=== PATIENT | female | born 1955 | race Caucasian/White ===

== ENCOUNTER 2019-04-04 12:56 | Inpatient (IN) ==
[2019-04-04] MEDS ORDERED: DECADRON IV SCH (14:15)
[2019-04-04] MEDS ORDERED: SODIUM CHLORIDE 0.9% INJ SCH (14:15)
[2019-04-04 15:02] LABS: BASO# 0.02 X1000 (0.0-0.2); BASO% 0.2 % (0.0-0.8); EOS# 0.91 X1000 (0.0-0.7); EOS% 10.3 % (0.0-10.0); HEMATOCRIT 40.6 % (37.0-47.0); IMM GRAN# 0.06 X1000 (0.0-0.04); IMM GRAN% 0.7 % (0.0-0.5); LYMPH# 1.52 X1000 (1.2-3.4); LYMPH% 17.3 % (20.5-51.1); MCH 29.9 PG (27-31); MCV 93.3 FL (81-99); MONO# 0.67 X1000 (0.11-0.59); MONO% 7.6 % (1.7-9.3); MPV 9.7 FL (7.4-10.4); NEUT# 5.62 X1000 (1.4-6.5); NEUT% 63.9 % (42.2-75.2); PLT 321 X1000 (130-400); RBC 4.35 XMIL (4.2-5.4); RDW 13.3 % (11.5-14.5)
[2019-04-04 15:28] LABS: AGAP 11; ALB/GLOB RATIO 1.3; ALBUMIN 3.9 g/dL (3.5-5.0); ALKALINE PHOSPHATASE 124 U/L (32-104); BUN 8 mg/dL (8-22); CALCIUM 8.9 mg/dL (8.8-10.2); CHLORIDE 100 mmol/L (98-107); COSMO 269; CREATININE 0.7 mg/dL (0.5-0.9); ESTIMATED GFR > 60; GLUCOSE 102 mg/dL (70-104); GOT 21 U/L (10-30); GPT 19 U/L (10-36); POTASSIUM 4.2 mmol/L (3.5-5.1); SODIUM 135 mmol/L (136-145); TCO2 24 mmol/L (25-35); TOTAL BILIRUBIN 0.26 mg/dL (0.20-1.00); TOTAL PROTEIN 6.9 g/dL (6.3-8.3)
[2019-04-04] MEDS: PROTONIX IV SCH (15:45)
[2019-04-04] MEDS ORDERED: TYLENOL PO PRN (21:03)
[2019-04-04] MEDS: MIRAPEX PO SCH (21:36)
[2019-04-04] MEDS: SOLU-CORTEF IV SCH (21:36)
--- NOTE | 2019-04-04 21:38 | HISTORY AND PHYSICAL ---
CHIEF COMPLAINT: Diffuse rash throughout the body including the face, itching, shaking chills. HISTORY OF PRESENT ILLNESS: She is a 63-year-old white female. She just came in as a brand new patient, relocated from [place]. She was evaluated for constipation, rectal prolapse, some type of hemicolectomy 5 years ago. Details are not known. The patient was sent home on laxatives and Linzess. Subsequently she had a colonoscopy done by Dr. Pantoja last week, and she was allergic to latex. Since then she started having a rash which is worsening, itching, generalized erythroderma, eyes are closing, low-grade fever. It appears to look like a DRESS syndrome, and eosinophilia noted on CBC. The patient is allergic to Solu-Medrol. Basically admitted to the hospital for fluids and IV Solu-Cortef. I could not give her the Solu-Medrol injection in my office. She was also seen by Dr. Manriquez, and he wants to clear her by seafood harvester to fix the rectal prolapse. As a result, hospital admission was warranted. PAST MEDICAL HISTORY: COPD, CAD, hypertension, osteoporosis, rectal prolapse, seborrheic dermatitis. PAST SURGICAL HISTORY: Stent in the LAD, cholecystectomy, hysterectomy, bilateral cataract surgery, some type of hemicolectomy. I do not see any scars. MEDICATIONS: Lisinopril 2.5 mg daily, Plavix 75 daily, steroids as needed, Symbicort 160/4.5 one puff b.i.d., Toprol-XL 25 daily, Ventolin HFA as needed. ALLERGIES: Latex and eggs. SOCIAL HISTORY: Smoking 1 pack a day since age 22. No alcohol. No drug abuse. The patient is disabled, used to work as a nurse. She is . Mother of 5 children, relocated from [place]. FAMILY HISTORY: Father of pancreatic cancer at 52. Mother is still alive. HEALTH MAINTENANCE: Flu vaccine declined due to allergy to egg. She was up to date as per mammography, DEXA scan, Pap smear. Colonoscopy 03/[address] Pantoja. REVIEW OF SYSTEMS: HEENT: Itching of eyes, itching of scalp, redness, low-grade fever, chills, earache. No neck pain. No goiter. Cardiopulmonary: No chest pain, shortness of breath, PND or orthopnea. GI: No nausea, vomiting, abdominal pain.: No history of hesitancy, frequency, dysuria. No swelling of legs. No joint pain. Neurologic: No focal symptoms or weakness. PHYSICAL EXAMINATION: VITAL SIGNS: Temperature is 99.2 degrees. Tachycardic. Blood pressure is 126/58. GENERAL: Five feet 6 inches, 144 pounds. HEENT: Atraumatic, normocephalic. Pupils equal and react to light. Chemosis with diffuse erythroderma noted. The whole face is red. NECK: Supple. CHEST: Bilateral air entry. HEART: Sounds are tachycardic. ABDOMEN: Belly is soft, nontender. EXTREMITIES: No active synovitis. NEUROLOGIC: No neurological symptoms or weakness. LABORATORY DATA: White cell count 8.8, hematocrit 40, platelets 321,000. Eosinophils 10.3. Sedimentation rate is normal. SMA 7, LFTs are normal. DIAGNOSTIC DATA: Chest x-ray was stable. ASSESSMENT AND PLAN: 1. A 63-year-old white female admitted to the hospital with drug rash with eosinophilia and systemic symptoms (DRESS syndrome) with erythroderma. Probably allergic reaction, etiology to be determined. Plan is intravenous Solu-Cortef and Benadryl for itching. Tylenol for pain and fever. 2. Rectal prolapse with constipation. Dr. Manriquez is going to do the surgery. 3. Chronic obstructive pulmonary disease, quit smoking. On albuterol, Symbicort and Proventil. 4. Coronary artery disease with a stent, on aspirin, Plavix and metoprolol. 5. We will get reports from [place]. Also we will discuss with her seafood harvester for preoperative clearance for rectal prolapse surgery. cc: William Childress MD
[2019-04-04] MEDS: BENADRYL IV PRN (21:40)
[2019-04-05] MEDS: VENTOLIN HFA INH PRN ×2 (02:58→09:26)
[2019-04-05] MEDS: BENADRYL IV PRN (04:03)
[2019-04-05] MEDS: SOLU-CORTEF IV SCH ×3 (04:03→21:05)
[2019-04-05] MEDS: MIRAPEX PO SCH ×2 (09:08→21:01)
[2019-04-05] MEDS: CELEXA PO SCH (09:08)
[2019-04-05] MEDS: PRINIVIL PO SCH (09:08)
[2019-04-05] MEDS: TOPROL XL PO SCH (09:09)
[2019-04-05] MEDS: PLAVIX PO SCH (09:09)
[2019-04-05] MEDS: ASPIRIN PO SCH (09:09)
[2019-04-05] MEDS: PROTONIX IV SCH (13:48)
--- NOTE | 2019-04-05 22:52 | PROGRESS NOTE ---
DATE: 04/05/2019 SUBJECTIVE: IV access problematic. The patient has diffuse erythroderma, dry skin itching. OBJECTIVE: Vital signs: Low-grade fever. Vitals are stable. HEENT exam: Conjunctivae are red. Diffuse erythroderma noted. Respiratory: Chest is clear to auscultation. Cardiovascular: Heart sounds are regular. LABORATORY DATA: Reported normal. ASSESSMENT AND PLAN: 1. Erythroderma with exfoliative dermatitis, eosinophilia. Continue IV hydrocortisone. Eucerin cream for dry skin. 2. Gastrointestinal prophylaxis with IV Protonix. 3. Coronary artery disease, stable. 4. Rectal prolapse, stable. If continues to improve, we will discharge in the morning with p.o. prednisone along with Benadryl, Atarax, and follow up as an outpatient. LEVEL OF DOCUMENTATION: 25 minutes. cc: William Childress MD
[2019-04-05] MEDS: EUCERIN CREAM TOP SCH (23:35)
[2019-04-05] MEDS: BENADRYL PO PRN (23:40)
[2019-04-06] MEDS: BENADRYL PO PRN (06:22)
[2019-04-06] MEDS: SOLU-CORTEF IV SCH (06:56)
[2019-04-06 07:51] VITALS: BP 140/43
[2019-04-06] MEDS: EUCERIN CREAM TOP SCH (08:57)
[2019-04-06] MEDS: PRINIVIL PO SCH (08:57)
[2019-04-06] MEDS: ASPIRIN PO SCH (08:57)
[2019-04-06] MEDS: PLAVIX PO SCH (08:57)
[2019-04-06] MEDS: CELEXA PO SCH (08:57)
[2019-04-06] MEDS: MIRAPEX PO SCH (08:57)
[2019-04-06] MEDS: TOPROL XL PO SCH (08:58)
--- NOTE | 2019-04-08 18:59 | DISCHARGE SUMMARY ---
ADMISSION DATE: 04/04/2019 DISCHARGE DATE: 04/06/2019 DISCHARGING DIAGNOSIS: Generalized erythroderma due to allergic reaction with eosinophilia. SECONDARY DIAGNOSES: 1. Chronic obstructive pulmonary disease. 2. Coronary artery disease with a stent in the left anterior descending. 3. Hypertension. 4. Osteoporosis. 5. Rectal prolapse. 6. Extensive seborrheic capitis. BRIEF HISTORY: Please see the H and P that was done on 04/04. In brief, she is a 63-year-old white female recently had a colonoscopy. Obviously, she had some medicines that were given. As a result, she started having generalized rash completely diffuse erythroderma, itching, eyes were congested, along with a lot of seborrhea on the scalp. She has significant eosinophilia and low- grade fever. At this time, it looked like a drug reaction, impending erythroderma. The patient is allergic to methylprednisolone. As a result, she has been hospitalized. The patient was given IV hydrocortisone followed by Benadryl. Eucerin cream was applied. She was given IV fluids. Rash is slowly fading away. She did not show any exhibit of DRESS syndrome. The patient was discharged home in a stable condition. LABORATORY DATA: White cell count 8.8, hematocrit 40, platelets 321,000. Sedimentation rate was 7. Sodium 135, potassium 4.2, chloride 100, CO2 of 24, BUN 8, creatinine 0.7, glucose 102. LFTs were normal. DISCHARGING INSTRUCTIONS: 1. Continue on Medrol Dosepak. 2. Hydroxyzine 10 t.i.d. for itching. Eucerin cream for dry skin. Ventolin HFA 1 puff q. 6 hours as needed. Aspirin 325 daily. Celexa 20 daily. Plavix 75 daily. Toprol 50 daily. Pramipexole 1 mg p.o. b.i.d. Lisinopril 2.5 daily. 3. Patient has been scheduled for repair of rectal prolapse by Dr. Manriquez and will contact with wire machine operator about a drug-coated stent, which was placed July 2018 in [place]. Follow up in my office in 10 days. cc: MD Bridget Mcwilliams MD Babu Kantamneni, MD
== END 2019-04-06 10:16 | disposition home or self-care (01) | DRG 607 ==
LOC: DIRADM 12:56 → EDIPHOLD 13:37 → 3N 18:41
PROVIDERS: ADMIT Internal Medicine; ATTEND Internal Medicine

== ENCOUNTER 2019-05-04 10:38 | Day surgery (SDC) ==
[2019-05-04 14:16] LABS: URINE SOURCE CATH
[2019-05-04 14:31] LABS: BILIRUBIN URINE NEGATIVE (NEGATIVE); BLOOD URINE NEGATIVE (NEGATIVE); COLOR STRAW; GLUCOSE URINE NEGATIVE (NEGATIVE); KETONE URINE NEGATIVE (NEGATIVE); LEUKOCYTES URINE NEGATIVE (NEGATIVE); NITRITE URINE NEGATIVE (NEGATIVE); PROTEIN URINE NEGATIVE (NEGATIVE); SP GRAVITY URINE 1.004; TURBIDITY URINE CLEAR (CLEAR); UR EPITHELIAL CELLS <10 /HPF (<10); URINE BACTERIA NEGATIVE /HPF; URINE RBC <10 /HPF (<10); URINE WBC <10 /HPF (<10); UROBILINOGEN URINE NORMAL (NORMAL)
[2019-05-05 07:26] VITALS: BP 101/35
== END 2019-05-05 09:07 | disposition home or self-care (01) ==
LOC: OPS 10:38 → 4N 10:38 → PAT 10:38 → OPS 05-05 09:07
PROVIDERS: ATTEND Surgery